=== PATIENT | male | born 1990 | race American Indian/Alaskan Native ===

== ENCOUNTER 2017-03-17 14:44 | Emergency (ER) | payer OTHER ==
[2017-03-17 15:04] VITALS: BP 120/54
--- NOTE | 2017-03-17 16:48 | XRay Report ---
FINAL REPORT PROCEDURE: XR WRIST 3+V RT TECHNIQUE: Three views of the right wrist are obtained HISTORY: right wrist pain and swelling COMPARISON: No prior studies are available for comparison. FINDINGS: There is no fracture or dislocation. No arthritic changes are seen. There may be mild soft tissue swelling. IMPRESSION: There may be mild soft tissue swelling.
--- NOTE | 2017-03-17 16:51 | XRay Report ---
FINAL REPORT PROCEDURE: XR ANKLE 3+V RT TECHNIQUE: Three views of the right ankle are obtained HISTORY: right ankle pain COMPARISON: No prior studies are available for comparison. FINDINGS: Orthopedic plate is seen in the distal fibula with 6 screws. A 7 screw is seen passing obliquely through the distal fibula. No hardware failure or fracture is seen. Mild osteoarthritic changes are seen in the tibiotalar joint. There may be mild joint effusion. No fracture is seen. IMPRESSION: Mild osteoarthritic changes are seen.
--- NOTE | 2017-03-17 19:21 | Emergency Department Report ---
HPI - General Chief Complaint: Extremity Injury, Lower Time Seen by Provider: 03/17/17 17:42 - HPI HPI: This is a 26 year-old male presents to the emergency department with complaint of acute on chronic right wrist and right ankle and lower leg pain. He also says that the right ankle and distal tib-fib often will swell up compared to the left lower extremity. He does have a history of a right fibular fracture with orthopedic repair about 1 year ago. 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 He has not taken anything recently for his pain prior to presentation. He has started using his old walking boot and crutches. No recent travel or sick contacts at home. No recent immobility. He denies any skin color change, fever. ED Past Medical Hx - Past Medical History Previous Medical History?: Yes Additional medical history: right ankle pain, Right tibia fx, Right hand swelling - Surgical History Past Surgical History?: Yes Additional Surgical History: Right ankle with instrumentation - Social History Smoking Status: Current Some Day Smoker Substance Use Type: Alcohol, Marijuana - Medications Home Medications: Home Medications Medication Instructions Recorded Confirmed Last Taken Type HYDROcodone/ACETAMINOPHEN [[place] 1 each PO Q6H PRN #10 tablet 03/17/17 Unknown Rx 5-325 Tablet] ED Review of Systems ROS: Stated complaint: RIGHT ANKLE PAIN Other details as noted in HPI Comment: All other systems reviewed and negative Constitutional: denies: chills, fever Eyes: denies: eye pain, eye discharge, vision change ENT: denies: ear pain, throat pain Respiratory: denies: cough, shortness of breath, wheezing Cardiovascular: edema. denies: chest pain Gastrointestinal: denies: abdominal pain, nausea, diarrhea Genitourinary: denies: urgency, dysuria Musculoskeletal: joint swelling, arthralgia, myalgia Skin: denies: rash, lesions Neurological: denies: headache, weakness, paresthesias Physical Exam - Physical Exam Vital Signs: Vital Signs 03/17/17 14:59 Temperature 98.1 F Pulse Rate 58 L Respiratory 20 Rate Blood Pressure 120/54 O2 Sat by Pulse 99 Oximetry Physical Exam: GENERAL: The patient is well-developed well-nourished. HENT: Normocephalic. Atraumatic. Patient has moist mucous membranes. EYES: Extraocular motions are intact. Pupils equal reactive to light bilaterally. NECK: Supple. Trachea is midline. CHEST/LUNGS: Clear to auscultation. There is no respiratory distress noted. HEART/CARDIOVASCULAR: Regular. There is no tachycardia. There is no gallop rub or murmur. ABDOMEN: Abdomen is soft, nontender. Patient has normal bowel sounds. There is no abdominal distention. SKIN: Skin is warm and dry. There is some nonpitting swelling to the right ankle and distal tib-fib with compared to the left. There is possibly some very mild nonpitting swelling to the circumferential right wrist. No rash, erythema or lesions seen to either of these areas. NEURO: The patient is awake, alert, and oriented. The patient is cooperative. The patient has no focal neurologic deficits. The patient has normal speech and gait. MUSCULOSKELETAL: There is some reproducible tenderness to palpation to the circumferential right ankle and distal to mid right tib-fib. There is also some tenderness to palpation to the right wrist. He has pain with active movement as well. There are no seizures or any other exacerbations with tapping on the volar wrist over the median nerve. Positive Mary test. Radial pulse +2 over 4 bilaterally. Cap refill less than 2 seconds. ED Course Vital Signs 03/17/17 14:59 Temperature 98.1 F Pulse Rate 58 L Respiratory 20 Rate Blood Pressure 120/54 O2 Sat by Pulse 99 Oximetry ED Medical Decision Making - Radiology Data Radiology results: image reviewed interpreted by me: X-ray of the right wrist does not show any fracture, dislocation or any acute process. X-ray of the right ankle shows surgical hardware in place but no fracture, dislocation or any other acute process. - Medical Decision Making 26-year-old male presents with acute on chronic right ankle, distal tib-fib and right wrist pain. There is some swelling seen to the right lower extremity compared to the left. He will be given a order for a right lower extremity venous Doppler to be done to rule out a DVT although there is a low suspicion that this is the cause of his symptoms. He also has some swelling and discomfort to the right wrist that is reproducible. Positive Mary's test so there could be some de Quervain tenosynovitis and there also could be some carpal tunnel and/or repetitive stress injuries. There are no skin color changes or signs of cellulitis or septic joint. Vital stable including being afebrile. Imaging of the wrist and ankle shows some possible osteoarthritis but otherwise no acute process or fracture/dislocation. He'll be placed in a wrist splint. He already has a walking boot and use his crutches. He will be given a few days off from work. He'll be given a small amount of pain medication and he has been encouraged to follow up with his orthopedist. - Differential Diagnosis carpal tunnel, de Quervain's tenosynovitis, fracture, dislocation, DVT Critical Care Time: No Critical care attestation.: If time is entered above; I have spent that time in minutes in the direct care of this critically ill patient, excluding procedure time. ED Disposition Clinical Impression: Right wrist pain, Right leg swelling Right ankle pain Qualifiers: Chronicity: unspecified Qualified Code(s): M25.571 - Pain in right ankle and joints of right foot Disposition: DC-01 TO HOME OR SELFCARE Is pt being admited?: No Condition: Stable Instructions: Arthralgia (ED), Leg Edema (ED) Additional Instructions: Please follow-up with your orthopedist in the next few days. I have given you a prescription/order to return to the outpatient imaging center for a venous Doppler ultrasound of your right lower leg to rule out a blood clot as the source of your discomfort and/or swelling. If it is positive, they will redirect you back to the emergency department for further evaluation and treatment. If it is negative, continue with the plan for follow-up with your orthopedist and/or PCP. You can use rest, elevation, compression, and ice for the pain and/or swelling. You can use anti-inflammatories such as ibuprofen, Aleve, Motrin but do not mix multiple brands or types of anti-inflammatories. You have been prescribed a medication that is sedating and therefore should not be taken prior to driving, working, and responsible for children and in no way should be mixed with alcohol of any quantity. Prescriptions: HYDROcodone/ACETAMINOPHEN [[place] 5-325 Tablet] 1 each PO Q6H PRN #10 tablet PRN Reason: Pain Referrals: PRIMARY CARE, [Primary Care Provider] - [facility] Forms: Work/School Release Form(ED) Time of Disposition: 19:24
== END 2017-03-17 19:30 | disposition home or self-care (01) ==
LOC: EDBD → ED 14:44
DX: M25.531 Pain in right wrist (principal); M25.571 Pain in right ankle and joints of right foot; F17.210 Nicotine dependence, cigarettes, uncomplicated; F12.10 Cannabis abuse, uncomplicated
CPT/HCPCS: 99283